=== PATIENT | male | born 1990 | race African-American/Black ===

== ENCOUNTER 2021-08-01 20:43 | Emergency (ER) | payer OTHER ==
[~2021-08-01] VITALS: Ht 175.3 cm; Wt 60.8 kg
[2021-08-01 20:50] VITALS: BP 117/76
[2021-08-01 22:38] VITALS: BP 118/77
== END 2021-08-01 22:38 | disposition home or self-care (01) ==
LOC: MED 20:43
DX: B34.9 Viral infection, unspecified (principal); Z20.822 Contact with and (suspected) exposure to COVID-19
CPT/HCPCS: 99283

== ENCOUNTER 2021-08-04 17:51 | Emergency (ER) | payer OTHER ==
[~2021-08-04] VITALS: Ht 175.3 cm; Wt 61.2 kg
[2021-08-04 18:14] VITALS: BP 120/79
--- NOTE | 2021-08-04 19:24 | NUR ---
ROBERT SWAB COLLECTED AND SENT TO LAB.
[2021-08-04] MEDS ORDERED: SUD30 PO (22:06)
[2021-08-04] MEDS ORDERED: DIPH25TA53 PO (22:06)
[2021-08-04 22:15] VITALS: BP 122/84
--- NOTE | 2021-08-04 22:15 | NUR ---
Patient discharged with v/s stable. Written and verbal after care instructions given and explained. Patient alert, oriented and verbalized understanding of instructions. Ambulatory with steady gait. All questions addressed prior to discharge. ID band removed. Patient advised to follow up with PMD. Rx of VALERIO MOCK given. Patient educated on indication of medication including possible reaction and side effects. Opportunity to ask questions provided and answered.
== END 2021-08-04 22:15 | disposition home or self-care (01) ==
LOC: MED 17:51
DX: U07.1 COVID-19 (principal); Z79.899 Other long term (current) drug therapy
CPT/HCPCS: 71045; 99285

== ENCOUNTER 2022-05-24 00:35 | Emergency (ER) | payer OTHER ==
[~2022-05-24] VITALS: Ht 175.3 cm; Wt 62.6 kg
[~2022-05-24 00:35] MED LIST: DIPH25TA53 PO; SUD30 PO
[2022-05-24 01:13] VITALS: BP 115/77
[2022-05-24] MEDS ORDERED: KETOROLAC 15 MG/ML VIAL IM ONE (03:00)
[2022-05-24] MEDS ORDERED: methocarbamoL 500 MG TAB PO ONE (03:00)
[2022-05-24] MEDS ORDERED: LID5T TP (03:08)
[2022-05-24] MEDS ORDERED: METH-1681 PO (03:08)
[2022-05-24 03:25] VITALS: BP 115/77
--- NOTE | 2022-05-24 03:26 | NUR ---
Patient discharged with v/s stable. Written and verbal after care instructions given and explained. New rx lidocaine patch and methocarbamol. Patient verbalized understanding. Ambulatory with to car. All questions addressed prior to discharge. Advised to follow up with PMD.
== END 2022-05-24 03:25 | disposition home or self-care (01) ==
LOC: MED 00:35
DX: M54.6 Pain in thoracic spine (principal); M79.602 Pain in left arm; Z79.899 Other long term (current) drug therapy
CPT/HCPCS: 96372; 99283; J1885